=== PATIENT | male | born 1945 | race African-American/Black ===

== ENCOUNTER → 2020-04-08 | Outpatient (CLI) | payer MEDICARE, OTHER ==
--- NOTE | 2020-04-08 12:41 | KCIC ---
Examination: MRI of the left shoulder without contrast HISTORY: History of left shoulder pain COMPARISON: None available TECHNIQUE:Multiplanar, multisequence MR imaging of the left shoulder was performed. FINDINGS: The long head of the biceps tendon within the bicipital groove. The attachment of the long head the biceps tendon to the superior labral anchor grossly appears intact. Moderate increased T2 signal identified in the subscapularis, supraspinatus, infraspinatus tendons. The acromion is downsloping within. The acromion abuts the superior aspect of supraspinatus tendon. The muscle bulk grossly appears unremarkable. The labrum grossly appears unremarkable. Moderate degenerative changes identified in the acromioclavicular joint, glenohumeral joint. Minimal amount of fluid identified in subacromial subdeltoid bursa. Fat is present within the rotator interval. IMPRESSION: 1. Downsloping of the acromion with the inferior aspect of the acromion abuts the supraspinatus tendon. Correlate for impingement with minimal fluid in the subacromial /subdeltoid bursa. 2. Moderate tendinosis of the rotator cuff. 3. Moderate degenerative changes acromioclavicular joint, glenohumeral joint. Electronically signed by: Jef Amado MD (04/08/2020 12:37 PM) [id number]
== END ==
LOC: KCIC MRI 11:00
PROVIDERS: ATTEND Family Medicine
DX: M19.012 Primary osteoarthritis, left shoulder (principal); M77.9 Enthesopathy, unspecified
CPT/HCPCS: 73221